=== PATIENT | female | born 1975 | race Caucasian/White ===

== ENCOUNTER → 2020-07-01 15:30 | Outpatient (CLI) | payer SELFPAY ==
--- NOTE | 2020-07-02 | EMB_PTH ---
PATIENT: DIONTE VELAZQUEZ LOC: [facility] U#:[id number] AGE/SX: 50/F ROOM: RE07/01/[address]: Dr. Lamberto Gross MD : 1975 BED: DIS: SPEC #: [id number] RECD: 07/02/20 09:52 STATUS: YOGESH EDGAR #: [id number] ALEXIA: 07/02/20 00:[address]: Lamberto Gross DEPT: SURGICAL PATHOLOGY RECD BY: Teodora Henderson Tissues: Endometrium, NOS Procedures: Surgery Specimen Level IV HEADER OPERATION: Endometrial biopsy PRE-OP DIAGNOSIS: N93.9 N92.0 TISSUE SUBMITTED: Endometrial biopsy MICROSCOPIC DIAGNOSIS Endometrial biopsy: Late proliferative to early secretory endometrium. SJ:yara 07/03/20 MICROSCOPIC DESCRIPTION Slides are reviewed. GROSS DESCRIPTION Received in fixative is one container labeled with the patient's name and designated endometrial biopsy. The specimen consists of multiple irregular and elongated fragments of light quezada soft tissue that in aggregate measure 2.5 x 2.2 x 0.2 cm. The specimen is totally submitted in one cassette. / AM:yara 07/02/20 TC:4 CPT: 79375
[2020-07-07 09:44] LABS: HPV Reflexed? NOT INDICATED
== END ==
PROVIDERS: Visit Provider Obstetrics & Gynecology
DX: N93.9 Abnormal uterine and vaginal bleeding, unspecified (principal); N92.0 Excessive and frequent menstruation with regular cycle; Z12.4 Encounter for screening for malignant neoplasm of cervix
CPT/HCPCS: 88175; 88305; G0145

== ENCOUNTER 2020-08-04 06:02 | Day surgery (SDC) | payer SELFPAY ==
[2020-07-30 14:59] LABS: Prothrombin Time (Protime)PT. 12.9 SECONDS (11.7-14.9)
[2020-07-30 15:00] LABS: Partial Thromboplast Time 26.6 Seconds (24.1-36.2)
[2020-07-30 15:16] LABS: Hematocrit 34.2 % (37-47); Hemoglobin 10.6 g/dL (12.0-15.0); Mean Corpuscular Hgb 25.4 pg (27.0-32.0); Platelet Count 269 K/mm3 (150-450); RBC Distribution Width CV 14.5 % (11.6-14.6); RBC Distribution Width SD 42.2 fl (35.1-43.9); Red Blood Count 4.17 M/mm3 (4.2-5.4); White Blood Count 7.3 K/mm3 (4.4-11.0)
[2020-07-30 15:21] LABS: Creatinine, Serum 0.98 mg/dL (0.55-1.02); EST Glomerular Filtration Rate 66 mL/min (>60); Est Glom Filt Rate - Afr Amer 80 mL/min (>60)
[2020-07-30 15:25] LABS: hCG Titer Quant., Serum < 1 mIU/mL (1-3)
--- NOTE | 2020-08-03 12:39 | HP.PCM_ITS ---
History and Physical Date of Admission: 08/04/20 Surgical History and Physical Jennifer Denson, a 45 year old female 0 0 0 0 0, presents for RAVH/BS on August 04, 2020 at 7:30. -- Extremely Heavy and Long Menses; Heavy Irregular Bleeding; Large Submucous Fibroid -- Jennifer presents with c/o heavy irregular menses intermittently for the past 4mos. Pt relates her LMP began 06/13/20 and lasted 12days with very heavy flow and lots of clots. Pt sts periods have been heavier and more clots noted, but for the past 3-4mos are lasting longer and cycling closer to 18-21days. 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 Has a 5 month H/O heavy bleeding and clotting with cycles. They have become heavy and irregular. Dysmenorrhea and heavy menses which began 5 months ago. Jennifer claims it started suddenly and has been present varies. It occurs with menses. It is located in the Uterus. Associated signs and symptoms are none. Additional comments are: recent EMBx normal; heavy and long menses; 4 cm submucous fibroid lower uterine segment. MEDICATIONS HISTORY: Current medications prescribed by our practice are: 1. Provera 10 mg tablet, One pill by mouth once a day for 10 days every other month ALLERGIES: No Known Drug Allergies Review of Systems: GENERAL - Denies fever, or chills SKIN - Denies skin changes EYES - Denies visual changes EARS - Denies difficulty hearing NOSE - Denies nasal congestion or bleeding MOUTH - Denies sore throat or difficulty swallowing NECK - Denies pain or swelling RESPIRATORY - Denies shortness of breath or wheezing CARDIOVASCULAR - Denies palpitations or chest pain GASTROINTESTINAL - Denies nausea, vomiting, diarrhea, constipation GENITOURINARY - Denies dysuria, frequency of urination, incontinence of urine MUSCULOSKELETAL - Denies joint or muscle pain NEUROLOGICAL - Denies localized numbness or weakness PSYCHIATRIC - Denies depression or anxiety ENDOCRINE - Denies heat or cold intolerance, weight loss or gain HEMATO-IMMUNOLOGIC - Denies excesive bleeding with cuts SOCIAL HISTORY: Alcohol Use - denies use Smoking - denies use FAMILY HISTORY: MENSTRUAL HISTORY: LMP Known?- DefiniteAmount/Duration - normal amount, Regularity - Irregular and heavy, Frequency - variable days, LMP - 07/12/20 PAST PREGNANCIES: Total Pregnancies - 0; Full Term Pregnancies - 0; Premature - 0; Abortions, Induced - 0; Abortions, Spontaneous - 0; Ectopics - 0; Multiple Births - 0; Living Children - 0 PHYSICAL EXAM BP- 154/84 Sitting, Right arm, regular cuff Weight- 180.48569 lbs Height- 67 inch BMI:28.25 CONSTITUTIONAL - NAD, well nourished, and well developed SKIN - No rash, lesions, or ulcers HEENT - Normocephalic, PERRLA, EOMI NECK - No nodes, no nuchal rigidity and thyroid normal size and texture LYMPH NODES - Palpation of lymph nodes in neck and groins within normal limits LUNGS - CTA x2 without wheezes, crackles or rales CARDIAC - Regular rate and rhythm without rubs, murmurs, or gallops BREAST - No dominant masses, no tenderness, no axillary adenopathy, no nipple discharge, no skin changes ABDOMEN - Without hepatosplenomegaly, distention, masses, rebound, or guarding; normal bowel sounds; no hernias EXTREMITIES - No edema or calf tenderness NEUROLOGICAL - Cranial nerves II-XII grossly intact PSYCHIATRIC - A and O to time, place, person, mood and affect External Genitial Vagina - non-tender without lesions Urethra/Urethral Meatus - non-tender Bladder - non-tender Vagina - vaginal graham are pink and moist without loss of rugae and no evidence of atropy and blood in vagina Cervix - without cervical motion tenderness and has normal size and features without evident lesions and cervix high in vagina and posterior Uterus - enlarged uterus 8 wks, wt 125-150 g Adnexa - clear without massess or tenderness ASSESSMENT/PLAN: 1. Excessive And Frequent Menstruation With Regular Cycle and Submucous Leiomyoma Uterus Discussed options for treatment including expectant management versus proceeding with RAVH/BS. Desires proceeding with surgery. Discussed RBAs and all questions answered.
[2020-08-04] VITALS (11 sets, daily range): BP systolic 99–150; BP diastolic 56–81; PULSE 53–72; RESP 16–18; TEMP 36.3–37.1; O2SAT 93–100; BMI 28.8
[2020-08-04 06:37] LABS: Internal QC Validated? YES +Cl - CLEAR BKGD; Pregnancy, Urine Negative Negative
[2020-08-04] MEDS: Lactated Ringers 1,000 ML 100 ML IV ×2 (06:48→12:04)
--- NOTE | 2020-08-04 07:45 | HYST_PTH ---
PATIENT: DIONTE VELAZQUEZ LOC[place] [facility] [place] U[place][id number] AGE/SX: 45/F ROOM: RE08/04/[address]: Dr. Lamberto Gross MD : 1975 BED: DIS: 08/05/2020 SPEC #: [id number] RECD: 08/04/20 07:45 STATUS: YOGESH HERNÁNDEZ #: [id number] ALEXIA: 08/04/20 07:[address]: Lamberto Gross DEPT: SURGICAL PATHOLOGY RECD BY: Teodora Henderson ENTERED: 08/04/20 12:32 SP TYPE: HYSTERECT OTHR DR: Dr. Kevin Pizarro MD Tissues: Uterus, NOS Procedures: Surgery Specimen Level V HEADER OPERATION: Robotic assisted vaginal hysterectomy, bilateral salpingectomy PRE-OP DIAGNOSIS: Excessive and frequent menstruation TISSUE SUBMITTED: Uterus, cervix, bilateral fallopian tubes MICROSCOPIC DIAGNOSIS Uterus, hysterectomy: Cervix - nabothian cysts, squamous metaplasia and mild chronic inflammation. Endometrium - transition endometrium. Myometrium - leiomyomas. Right fallopian tube - no pathologic change. Left fallopian tube - no pathologic change. AM:yara 08/05/2020 MICROSCOPIC DESCRIPTION Slides are reviewed. GROSS DESCRIPTION Received in fixative is one container labeled with the patient's name and designated uterus, cervix, bilateral fallopian tubes. The specimen consists of a hysterectomy specimen consisting of uterus in multiple pieces, cervix and bilateral fallopian tubes. One fallopian tube is attached to one of the pieces of uterus and the second fallopian tube is detached. The uterus with cervix weighs in aggregate 269 gm. The detached cervix measures 3.5 x 3 x 2 cm. The ectocervical mucosa is unremarkable. The external os is slit-like in contour. The endocervical canal measures 3.5 cm in length. The endocervical mucosa is unremarkable. Sections of the cervix reveal two cysts filled with mucoid material. The uterus in multiple pieces measure in aggregate 14 x 14 x 5 cm. The largest piece measures 10 x 7 x 5 cm. The largest piece of uterus also shows endometrial cavity with endometrium thin without any mass lesion and measuring 0.1 cm in thickness. This piece of uterus also shows a nodular mass measuring 4.5 cm in greatest dimension. The uninvolved uterine wall measures 3 cm in thickness. Sections also reveal additional intramural nodular masses. The largest mass as previously noted is submucosal in location. Sections of these masses reveal quezada whorled cut surfaces without areas of hemorrhage, necrosis or cystic degeneration. The fallopian tubes could not be oriented as right or left due to fragmented nature of the specimen and measures 7 cm in length and 0.7 cm in diameter and 6.5 cm in length and 0.5 cm in diameter. Sections of fallopian tubes do not reveal any mass lesion. [employer] sections are submitted in 11 cassettes as follows: 1 & 2 - cervix, 3-5 - uterine wall including endometrium (4 & 5 also contain submucosal nodular mass), 6 & 7 - largest nodular mass, 8 - second largest nodular mass, 9??smaller nodular masses, 10 - one fallopian tube attached to one of the pieces of uterus, 11 - detached fallopian tube. / TONJA:yara 08/04/2020 TC:1 CPT: 37583
[2020-08-04] MEDS: Cefotetan 2 GM in 0.9% NS 100 ML IV (08:10)
[2020-08-04] MEDS: Lubricating Jelly 60 GM Tube 30 GM TOPICAL (08:30)
[2020-08-04] MEDS: Ropivacaine 0.5% 30 ML Vial (08:37)
--- NOTE | 2020-08-04 10:56 | OP.PCM_ITS ---
Report of Operation Date of Procedure: 08/04/20 Pre-Operative Diagnosis: Menorrhagia and Submucous Fibroids Post-Operative Diagnosis: Menorrhagia and Submucous Fibroids Surgery/Procedure Performed:: Robotic Assisted Vaginal Hysterectomy and Bilateral Salpingectomy Description of Surgical Findings:: 15 cm uterus with normal-appearing fallopian tubes and ovaries. Removed in pieces with submucous fibroid noted in the specimen. histotechnologist supervisor: Bakari Woods Type of Anesthesia:: General - Endotracheal Anesthesiologist: Vitaliy Taveras Specimen's removed: Uterus and bilateral fallopian tubes Drains: Scott to straight drain Estimated Blood Loss (mL): Minimal Fluids Replaced: Crystalloid Description of Procedure: Surgeon: Lamberto Gross MD, FACOG Indication: This is a 45 year old patient who has been having problems with extremely heavy menses with a large submucous fibroid noted on ultrasound. Conservative measures have not been helpful. The patient has been counseled regarding the risks, benefits and alternatives of this procedure including the possibility of bleeding, infection, and injury to surrounding structures such as bowel bladder and all questions were answered. She understands that if BSO is needed that she will need to be on HRT for an indefinite period of time. Procedure: Pt taken to the operating room where, after induction of general anesthesia, the patient was prepped and draped in the usual sterile fashion and placed on a non-slip Huggy-u-vac device. Trendelenburg test was satisfactory. Bladder was drained of urine with a Scott catheter which was left in place. Anterior cervix grasped and cervix was dilated to about 3-4 mm. Uterus sounded to 10 cms. 0-Vicryl suture was placed at the 3:00 and 9:00 position of the cervix. A small Advincula Hat Finisher Uterine Manipulator was then placed in the uterus and attention was turned to the laparoscopic portion of the procedure. Ropivocaine 0.5% was injected approximately 3 cm superior to the umbilicus and an 8 mm robotic camera port was introduced directly with intraperitoneal placement confirmed with CO2 insufflation. 8 mm robotic side ports were introduced under direct visualization approximately 10 cm lateral and 2 cm inferior to the umbilical port. A 5 mm left upper quadrant port was introduced and airseal insufflation with CO2 was started. The above findings were noted. Robot was docked without difficulty and attention turned to the robotic portion of the procedure. Approximately 26 cc of Ropivicaine was used. Bilateral mesosalpinx were ligated with 45 sidhu bipolar coagulation to the level of the round ligament. The posterior aspect of the cervix was identified and then opened for about 1 cm using 25 watt monopolar cautery. Bladder flap was opened and divided to the level of the round ligaments using monopolar cau jennifer. Progressive bites were then ligated on each side of the cervix with 35 sidhu bipolar cautery to the uterine arteries. The anterior vaginal mucosa was entered and cervix circumscribed with monopolar cautery. Uterus and attached tubes were removed through the vagina. It was necessary to remove the uterus in pieces due to its large size and inability to go through the vaginal cuff opening intact. Vaginal cuff was closed robotically first with 0-Vicryl Bettie stitches placed at each angle followed by closure of the mid-cuff with 0- Monocryl V-lock suture in two layers. Pelvis was copiously irrigated with saline and the right and left ureter were noted to peristalse. Robot was undocked and trocars were removed with as much gas as possible. Incisions were closed with 4-0 Monocryl subcuticular sutures and incisions covered with steri-strips. The patient tolerated the procedure well and was taken to the recovery room in satisfactory condition. Sponge, instruments and needle counts were all correct. There were no apparent complications of the surgery. Cefotetan hand 2 gms IV was given prior to the procedure. Estimated Blood Loss: Minimal Specimen to Pathology: Uterus and bilateral fallopian tubes Grafts/Implants Used: None - Complications None - Admit VTE Documentation VTE Present on Admission: Yes VTE Mechan Device Prophylaxis: SCD's VTE Pharm Prophylaxis ordered?: Yes
--- NOTE | 2020-08-04 11:04 | PCM.DC.VHY ---
Discharge Diet: No Restrictions Discharge Activity: Return to Normal Activity, May Not Drive - while taking narcotic pain medications., May Shower, May Take a Tub Bath May resume sexual activity in: 6-8 weeks Call your doctor if your incision/area has: Continuous Slow Oozing, Sudden Increased Bleeding, Increased Pain/ Swelling, Increased Redness, Foul Smelling Discharge Call your doctor if you observe: Fever of 101 or Higher, Inability to urinate, Inability to have a bowel movement, Using more than one pad per hour Allergies/Adverse Reactions: Allergies No Known Allergies Allergy (Verified 08/04/20 06:19) Medications to take at Discharge Docusate Sodium [Colace] 100 mg PO BID PRN PRN #60 cap 08/04/20 Oxycodone [Oxyir] 5 mg PO Q6H PRN PRN 7 Days #10 tablet 08/04/20 The following prescriptions were given: Docusate Sodium [Colace] 100 mg PO BID PRN PRN #60 cap PRN Reason: Constipation Transmission Status: [facility] to [facility] Oxycodone [Oxyir] 5 mg PO Q6H PRN PRN 7 Days #10 tablet PRN Reason: Pain Score 6-10 Transmission Status: [facility] to [facility] Primary Care Physician: Kevin Pizarro MD [Primary Care Provider] - Test Results: Test results from this visit will be discussed in further detail at your follow-up appointment, if applicable. Please Follow Up With: Lamberto Gross MD When: 2 to 3 weeks
--- NOTE | 2020-08-04 12:26 | SUR.PHASEI ---
per Dr. Pruitt pt is ok for floor with current vitals
--- NOTE | 2020-08-04 12:48 | PCS.PANDOC ---
PANDEMIC DOCUMENTATION INITIATED: Date: 07/07/2020 Time:
[2020-08-04] MEDS: Acetaminophen 500 MG Tablet 1000 MG PO ×2 (15:01→20:09)
[2020-08-04] MEDS: Lactated Ringers 1,000 ML 150 ML IV (16:52)
[2020-08-04] MEDS: 0.9% Saline Lock 10 ML Syringe IV (16:52)
[2020-08-04] MEDS: Ketorolac 30 MG/ML Syringe IV ×2 (16:52→22:54)
[2020-08-04] MEDS: Enoxaparin 30 MG/0.3 ML Syringe SC (16:52)
[2020-08-04] MEDS: Docusate Sodium 100 MG Capsule PO (22:55)
[2020-08-05] MEDS: Lactated Ringers 1,000 ML 150 ML IV ×2 (02:02→05:48)
[2020-08-05] MEDS: Acetaminophen 500 MG Tablet 1000 MG PO ×3 (02:02→15:05)
[2020-08-05 02:24] VITALS: BP 119/64; PULSE 50; RESP 18; TEMP 36.9; O2SAT 98
[2020-08-05] MEDS: 0.9% Saline Lock 10 ML Syringe IV ×2 (05:48→12:54)
[2020-08-05] MEDS: Ketorolac 30 MG/ML Syringe IV ×2 (05:48→12:54)
--- NOTE | 2020-08-05 06:50 | PN.OBGYN_ITS ---
Subjective: Patient without complaints. Tolerating diet well. Minimal vaginal bleeding. Objective: Wounds are clean, dry, intact. Good urine output. Hemoglobin and creatinine pending. - Physical Exam Vitals/I&O's: Vital Signs Temp Pulse Resp BP Pulse Ox 98.4 F 50 L 18 119/64 98 08/05/20 02:24 08/05/20 02:24 08/05/20 02:24 08/05/20 02:24 08/05/20 02:24 Oxygen Delivery Method Room Air Weight: 178 lb 3.2 oz Body Mass Index (BMI) 28.8 Intake and Output for Last 24 Hours 08/03/20 08/04/20 08/05/20 23:59 23:59 23:59 Intake Total 3005.00 / 3005.00 565 / 565 Output Total 2785 / 2785 Balance 220.00 / 220.00 565 / 565 Current Medications Acetaminophen (Acetaminophen 500 Mg Tablet) 1,000 mg PO Q6H [facility] Last Admin: 08/05/20 02:02 Dose: 1,000 mg Documented by: Docusate Sodium (Docusate Sodium 100 Mg Capsule) 100 mg PO BID [facility] Last Admin: 08/04/20 22:55 Dose: 100 mg Documented by: Sodium Chloride () 250 mls @ 15 mls/hr IV .[id number] PRN PRN Reason: Saline Flush Sodium Chloride () 250 mls @ 15 mls/hr IV .[id number] PRN PRN Reason: Additional IVPB Infusion Lactated Ringer's () 1,000 mls @ 150 mls/hr IV .Q6H40M [facility] Stop: 08/05/20 14:18 Last Admin: 08/05/20 05:48 Dose: 150 mls/hr Documented by: Ketorolac Tromethamine (Ketorolac 30 Mg/Ml Syringe) 30 mg IV Q6H [facility] Stop: 08/05/20 23:01 Last Admin: 08/05/20 05:48 Dose: 30 mg Documented by: Magnesium Chloride (Magnesium Chloride 64 Mg Delay Rel.Tablet) 128 mg PO DAILY PRN PRN PRN Reason: Constipation Nutritional Formula (Lactose Free) (Ensure Enlive 120 Ml Liquid) 120 ml PO TIDCM [facility] Ondansetron HCl (Ondansetron Odt 4 Mg Tablet) 4 mg PO Q6H PRN PRN PRN Reason: NAUSEA Oxycodone HCl (Oxycodone 5 Mg Tablet) 5 mg PO Q6H PRN PRN PRN Reason: Pain Score 4-10 Sodium Chloride (0.9% Saline Lock 10 Ml Syringe) 10 - 40 ml IV UD PRN PRN Reason: SALINE FLUSH Last Admin: 08/05/20 05:48 Dose: 10 ml Documented by: Medical Necessity - Tobacco Use Smoking Status: Never smoker Tobacco Use: Non-smoker Assessment/Plan Doing well postoperative day #1 status post robotic assisted vaginal hysterectomy and bilateral salpingectomy. Will discharge to home when able to void on own later today. Home-going instructions given.
[2020-08-05 07:10] VITALS: O2SAT 97
[2020-08-05 07:17] LABS: Hematocrit 31.1 % (37-47); Hemoglobin 9.6 g/dL (12.0-15.0); Mean Corp Hgb Conc 30.9 g/dL (32-36); Mean Corpuscular Hgb 25.2 pg (27.0-32.0); Mean Corpuscular Volume 81.6 fL (81-99); Mean Platelet Vol. 10.2 fl (6.2-12.0); Platelet Count 231 K/mm3 (150-450); RBC Distribution Width CV 14.3 % (11.6-14.6); RBC Distribution Width SD 42.3 fl (35.1-43.9); Red Blood Count 3.81 M/mm3 (4.2-5.4); White Blood Count 11.4 K/mm3 (4.4-11.0)
[2020-08-05 07:39] LABS: EST Glomerular Filtration Rate 73 mL/min (>60); Est Glom Filt Rate - Afr Amer 88 mL/min (>60); Estimated Creatinine Clearance 75.45 ml/min
[2020-08-05 08:27] VITALS: BP 108/65; PULSE 52; RESP 18; TEMP 36.8; O2SAT 98
--- NOTE | 2020-08-05 11:05 | NURSING ---
Patient expressing desire to be discharged if possible. Patient was instructed by primary RN (Lelo) that we will need to make sure that she can adequately empty bladder prior to discharge. Patient voided 150mls of clear yellow urine into a specimen hat after ambulating. A post void bladder scan was performed by this nurse which revealed > 400mls of post void residual. Informed patient that we would like to see her to be able to empty her bladder a little more completely. Patient stated that she feels as if she is not completely emptying. Instructed patient to continue with ambulation as available and to use the call light to notify nursing staff after she voids again so another post void residual bladder scan can be performed. Lelo RN aware of the above
[2020-08-05] MEDS: Docusate Sodium 100 MG Capsule PO (12:53)
[2020-08-05 15:12] VITALS: BP 138/83; PULSE 58; RESP 18; TEMP 37.2; O2SAT 98
== END 2020-08-05 15:30 | disposition home or self-care (01) ==
LOC: SDC 06:09 → AC 06:09 → MS3 12:01
PROVIDERS: Anesthesiology; PCP Family Medicine; Referring Provider Obstetrics & Gynecology; Visit Provider Obstetrics & Gynecology
PROC: 0UT90ZZ Resection of Uterus, Open Approach (ICD-10-PCS; CPT 58552; principal; 2020-08-04 07:25)
DX: N92.0 Excessive and frequent menstruation with regular cycle (principal); D25.9 Leiomyoma of uterus, unspecified; Z79.1 Long term (current) use of non-steroidal anti-inflammatories (NSAID); Z79.899 Other long term (current) drug therapy; N88.8 Other specified noninflammatory disorders of cervix uteri; D26.1 Other benign neoplasm of corpus uteri
CPT/HCPCS: 58552; 36415; 81025; 82565; 84702; 85027; 85610; 85730; 86850; 86900; 86901; 87426; 88307; 99251; C9803; J7120; A4216; G0463; J2405

== ENCOUNTER → 2025-01-30 | Outpatient (CLI) | payer SELFPAY ==
[2025-01-30 16:31] LABS: AST(SGOT) 20 U/L (<=31); Alanine Aminotransfer ALT/SGPT 17 U/L (<=34); Albumin, Serum 4.4 g/dL (3.5-5.0); Alkaline Phosphatase 82 U/L (35-104); Anion Gap 10 (5-15); BUN 18 mg/dL (4-19); BUN/Creat Ratio 18.7 RATIO (10-20); Calcium,Total 10.3 mg/dL (7.6-11.0); Carbon Dioxide 23.7 mmol/L (21.0-32.0); Chloride 105 mmol/L (98-108); Cholesterol 179 mg/dL (<=200); Globulin 3.7 g/dL (2.2-4.2); Glucose 120 mg/dL (70-99); Low Density Lipoprotein Calc. 100 mg/dL; Potassium 4.9 mmol/L (3.3-5.1); Triglycerides 171 mg/dL; Very Low Density Lipoprotein 34 mg/dL (5-40); cholesterol:hdl ratio screen 4.03
--- OUTSIDE RECORDS SUMMARY | 2025-01-30 22:45 | XMS RPT_ITS | CCD ---
Author Organization [facility] Care Team Providers Care Security Alarm Installer Name Role Phone Kevin Pizarro MD Unavailable Kevin Pizarro MD Unavailable Kye POTTERN, Margaret Orozco Unavailable Unavailab tigre Blair ANIMAL CARE ATTENDANT, Amanda Gemma Unavailable Unavaila ble Unavailable Unavailable Dr. Tacos Callaway Unavailable Loco FIGUEROA, Dora Unavailable Unavailable Carmina Stewart Attending Unavailable Kevin Pizarro Referring Unavailable Kevin Pizarro Primary Care Unavailable Juarez CABA, Dr. Brown Primary Care Provider Dr. Kevin Pizarro MD Referring Provider [phone] Carmina Romeo Attending Provider Medications Current Medications Medication Drug Class(es) Dates Sig (Normalized) Sig (Original) aspirin 81 mg delayed release oral tablet (1 source) Platelet Aggregation Inhibitor, Nonsteroidal Anti-inflammatory Drug Start: 01-30-2025 take 1 tablet by mouth once daily Aspirin (Adult Aspirin Regimen) 81 mg tablet,delayed release (DR/EC) Active 81 mg PO DAILY 360 0 January 30, 2025 12:00am rosuvastatin calcium 40 mg oral tablet (1 source) HMG-CoA Reductase Inhibitor Start: 01-30-2025 take 1 tablet by mouth once daily Rosuvastatin 40 mg tablet Active 40 mg PO daily 30 2 January 30, 2025 12:00am Completed/Discontinued Medications Medication Drug Class(es) Dates Sig (Normalized) Sig (Original) amoxicillin 500 mg oral tablet (3 sources) Penicillin-class Antibacterial Start: 07-12-2018 End: 07-26-2018 take 1 tablet by mouth three times daily Amoxicillin 500 MG Oral Tablet ; 1 (one) Tablet tid for 14 days Quantity: 42 {Tablet} Refills: 0 Ordered: 12-Jul-2018 MD Kevin Pizarro Start: 12-Jul-2018 End: 26-Jul-2018 Status: Inactive docusate sodium 100 mg oral capsule (1 source) Start: 08-04-2020 End: 01-25-2025 take 1 capsule by mouth twice daily as needed for constipation Docusate Sodium 100 MG capsule Discontinued 100 mg PO TWICE DAILY NEEDED as needed for Constipation 60 1 August 04, 2020 1:00am January 25, 2025 1:56pm oxyCODONE hydrochloride 5 mg oral tablet (1 source) Opioid Agonist Start: 08-04-2020 End: 08-11-2020 take 1 tablet by mouth every six hours as needed for pain Oxycodone 5 MG tablet Discontinued 5 mg PO EVERY 6 HOURS NEEDED as needed for Pain Score 6-10 10 7 0 August 04, 2020 August 10, 2020 1:00am August 11, 2020 1:02am Other acute postprocedural pain sulfamethoxazole 800 mg / trimethoprim 160 mg oral tablet (3 sources) Dihydrofolate Reductase Inhibitor Antibacterial, Sulfonamide Antimicrobial Start: 11-19-2013 End: 12-03-2013 take 1 tablet by mouth twice daily BACTRIM DS, 800-160MG (Oral Tablet) ; 1 Tab two times daily for 14 days Quantity: 28 {Tablet} Refills: 0 Ordered: 27-Mar-2014 MD Kevin Pizarro Start: 19-Nov-2013 End: 03-Dec-2013 Status: Inactive Problems Active Problems Problem Classification Problem Date Documented Da te Episodic/Chronic Acute bronchitis (6 sources) Acute bronchitis; Translations: [Acute bronchitis, unspecified] 11-19-2013 Episodic Blindness and vision defects (4 sources) Eye / vision finding; Translations: [Unspecified visual disturbance] 01-01-2025 Episodic Disorders of teeth and jaw (6 sources) Dental abscess; Translations: [Periapical abscess without sinus] 07-12-2018 Episodic Occlusion or stenosis of precerebral arteries (3 sources) Carotid artery stenosis; Translations: [Occlusion and stenosis of unspecified carotid artery] 01-07-2025 Chronic Other connective tissue disease (6 sources) Pain in left lower limb; Translations: [Pain in left leg] 07-12-2018 Episodic Varicose veins of lower extremity (6 sources) Varicose veins of lower extremities with other complications 07-12-2018 Episodic Past or Other Problems Problem Classification Problem Date Documented Da te Episodic/Chronic Unclassified (3 sources) Cheek pain - Started with pain, pressure and swelling of left cheek for 5 days and getting worse. Has had a fever off and on. reviewed by [facility] 07-12-2018 Unclassified (3 sources) Leg pain - The leg pain began gradually over time and has been occurring for 3 months. The symptoms have been occurring in a persistent pattern. The symptoms are described as a dull ache and are moderate in severity. The symptoms occur at rest and on exertion. There is involvement of the left lower extremity (rebollar). There are no precipitating factors. Aggravating factors include exertion, lying flat, sitting, walking, running and climbing stairs. There are no relieving factors. The symptoms have been associated with calf swelling, while the symptoms have not been associated with fever. There is a medical history of phlebitis. Note for Leg pain: reviewed by [facility] 03-27-2014 Unclassified (3 sources) Cold Symptoms - Symptoms include nasal congestion, purulent discharge (blowing out green nasal drainage.), productive cough (and will expectorate greensish sputum.) and wheezing (but not SOB. Pulse ox 97%.), but do not include ear pain, sore throat, fever or headache. The onset was gradual 2 week(s) ago. The patient describes this as unchanged. Current treatment includes non-prescription cold medication (Emergent -c- OTC). Risk factors do not include smoking. The patient has been exposed to an individual with similar symptoms. Note for Upper respiratory infection: reviewed by [facility] 11-19-2013 Unclassified (3 sources) Right leg pain - Pt here because about a week ago her right leg from knee on down started with a burning sensation. Then area right below knee turned black and blue and leg has been painful and swelling since then. Only thing that helps pain is to rest and keep elevated. 06-26-2010 Unclassified (2 sources) Follow up consultation - The patient is here to follow-up after an Ophthalmology consult ([facility]) on : (01/01/2025). Current symptoms include visual issues. Note for Consultation follow-up: Dr Dxion was concerned about possible carotid artery disease. 01-01-2025 Unclassified (2 sources) [ADDITIONAL REASON] Transition into care - The patient is transitioning into care from another physician (eye doctor). 01-01-2025 Vital Signs Date Time Vital Sign Value Performing Clinician Facility 01-30-2025 13:16-0400 Body height 170.[address] Kevin Pizarro MD Work Phone: [phone] [address] 01-30-2025 13:16-0400 Body mass index (BMI) [Ratio] 28 kg/m2 Dr. Kevin Pizarro MD Work Phone: [phone] [place] [address] 01-30-2025 13:16-0400 Body temperature 98.6 [degF] Dr. Kevin Pizarro MD Work Phone: [phone] [place] [address] 01-30-2025 13:16-0400 Body weight 81.[address] Kevin Pizarro MD Work Phone: 4([phone])026-850920 [place] [address] 01-30-2025 13:16-0400 Diastolic blood pressure 92 mm[Hg] Dr. Kevin Pizarro MD Work Phone: [phone])[phone] [place] [address] 01-30-2025 13:16-0400 Heart rate 68 /min Dr. Kevin Pizarro MD Work Phone: [phone])[phone] [place] [address] 01-30-2025 13:16-0400 Respiratory rate 16 /min Dr. Kevin Pizarro MD Work Phone: [phone])[phone] [place] [address] 01-30-2025 13:16-0400 SaO2% (BldA) [Mass fraction] 97 % Dr. Kevin Pizarro MD Work Phone: [phone] [place] [address] 01-30-2025 13:16-0400 Systolic blood pressure 145 mm[Hg] Dr. Kevin Pizarro MD Work Phone: 4([phone])[phone] [place] [address] 01-01-2025 09:51-0400 Body height 171.45 cm Dora Adan LPN [facility], [facility].; [facility], [facility] 01-01-2025 09:51-0400 Body mass index (BMI) [Ratio] 27.93 kg/m2 Dora Adan LPN [facility], [facility].; [facility], [facility] 01-01-2025 09:51-0400 Body surface area Derived from formula 1.95 m2 Dora Adan LPN [facility], [facility].; [facility], [employer] 01-01-2025 09:51-0400 Body weight 82.1 kg Dora Loco FIGUEROA [facility], [employer] [facility], [employer]. 01-01-2025 09:51-0400 Diastolic blood pressure 89 mm[Hg] Dora Adan LPN [facility], [employer], [employer]. Comment on above: Patient Position: Sitting; Cuff Location : Left Arm; Cuff Size: Standard 01-01-2025 09:51-0400 Heart rate 71 /min Dora Adan LPN [facility], [employer] Comment on above: Pattern: Regular 01-01-2025 09:51-0400 Systolic blood pressure 128 mm[Hg] Dora Adan LPN [facility], [employer] Comment on above: Patient Position: Sitting; Cuff Location : Left Arm; Cuff Size: Standard 07-12-2018 13:03-0500 Body height 171.45 cm Margaret Oorzco Kye ANIMAL CARE ATTENDANT [facility], [employer] 07-12-2018 13:03-0500 Body mass index (BMI) [Ratio] 27.78 kg/m2 [facility] [place] [facility], [employer].; [employer] 07-12-2018 13:03-0500 Body surface area Derived from formula 1.94 m2 Ana Stuckey ANIMAL CARE ATTENDANT [facility], [employer] 07-12-2018 13:03-0500 Body temperature 101.1 [degF] [facility] [place] [facility], [employer], [employer]. Comment on above: Method: Tympanic 07-12-2018 13:03-0500 Body weight 81.65 kg Ana Kye [facility], [employer] 07-12-2018 13:03-0500 Diastolic blood pressure 91 mm[Hg] AnaPam Cuadraey ANIMAL CARE ATTENDANT [facility], [employer], [employer]. Comment on above: Patient Position: Sitting; Cuff Location : Left Arm; Cuff Size: Large 07-12-2018 13:03-0500 Heart rate 92 /min Margaret Fishman ANIMAL CARE ATTENDANT [facility], [employer], [employer]. Comment on above: Pattern: Regular 07-12-2018 13:03-0500 Systolic blood pressure 148 mm[Hg] Margaret Fishman [facility], [employer], [employer]. Comment on above: Patient Position: Sitting; Cuff Location : Left Arm; Cuff Size: Large 03-27-2014 10:040 Body height 171.45 cm Amanda Blair LPN [facility], [employer], [employer]. 03-27-2014 10:0400 Body mass index (BMI) [Ratio] 27.78 kg/m2 [facility] [employer] 03-27-2014 10:190400 Body surface area Derived from formula 1.94 m2 Amanda Blair LPN [place] [facility], [employer], [employer]. 03-27-2014 10:190400 Body temperature 98.3 [degF] Amanda Blair [facility] [place] [facility], [employer], [employer]. Comment on above: Method: Tympanic 03-27-2014 10:040 Body weight 81.65 kg Amanda Blair LPN [facility], [employer] 03-27-2014 10:190400 Diastolic blood pressure 88 mm[Hg] Amanda Blair LPN [place] [facility], [employer], [employer]. Comment on above: Patient Position: Sitting; Cuff Location : Right Arm; Cuff Size: Standard 03-27-2014 10:190400 Heart rate 64 /min Amanda Blair LPN [place] [facility], [employer]. Comment on above: Pattern: Regular 03-27-2014 10:19-0400 Systolic blood pressure 147 mm[Hg] Amanda Blair LPN [employer] [facility], [employer]. Comment on above: Patient Position: Sitting; Cuff Location : Right Arm; Cuff Size: Standard 11-19-2013 13:30-0400 Body temperature 98.7 [degF] Kevin Pizarro MD Work Phone: [employer]. 11-19-2013 13:30-0400 Body weight 80.74 kg Kevin Pizarro MD Work Phone: [employer]. 11-19-2013 13:30-0400 Diastolic blood pressure 79 mm[Hg] Kevin Pizarro MD Work Phone: [employer]. Comment on above: Patient Position: Sitting; Cuff Location : Left Arm; Cuff Size: Standard 11-19-2013 13:30-0400 Heart rate 74 /min Kevin Pizarro MD Work Phone: [employer]. Comment on above: Pattern: Regular 11-19-2013 13:30-0400 Systolic blood pressure 118 mm[Hg] Kevin Pizarro MD Work Phone: [employer]. Comment on above: Patient Position: Sitting; Cuff Location : Left Arm; Cuff Size: Standard 06-26-2010 11:02-0500 Body weight 77.11 kg Kevin Pizarro MD Work Phone: [employer]. 06-26-2010 11:02-0500 Diastolic blood pressure 81 mm[Hg] Kevin Pizarro MD Work Phone: [employer]. Comment on above: Patient Position: Sitting; Cuff Location : Left Arm; Cuff Size: Standard 06-26-2010 11:02-0500 Heart rate 74 /min Kevin Pizarro MD Work Phone: [employer]. Comment on above: Pattern: Regular 06-26-2010 11:02-0500 Systolic blood pressure 131 mm[Hg] Kevin Pizarro MD Work Phone: [employer]. Comment on above: Patient Position: Sitting; Cuff Location : Left Arm; Cuff Size: Standard Encounters Encounter Date Encounter Type Care Provider Facility Start: 01-30-2025 End: 01-30-2025 ambulatory Carmina Stewart Facility:[facility] Start: 01-30-2025 End: 01-30-2025 Patient encounter procedure Carmina Stewartvladimir MURPHY -[facility] Work Phone: Start: 01-07-2025 End: 01-07-2025 Orders Kevin Pizarro MD Work Phone: [employer]. Start: 01-01-2025 End: 01-01-2025 Office outpatient visit 15 minutes Kevin Pizarro MD Work Phone: [employer] Start: 07-12-2018 End: 07-12-2018 Office outpatient visit 15 minutes Kevin Pizarro MD Work Phone: [employer] Start: 03-27-2014 End: 03-27-2014 Office outpatient visit 15 minutes Kevin Pizarro MD Work Phone: [employer] Start: 11-19-2013 End: 11-19-2013 Patient encounter procedure Kevin Pizarro MD Work Phone: [employer] Start: 06-26-2010 End: 06-26-2010 Patient encounter procedure Kevin Pizarro MD Work Phone: [employer] Procedures Date Procedure Procedure Detail Performing Clinician Start: 01-01-2025 End: 01-07-2025 Duplex scan extracranial art compl bi study Kevin Pizarro MD Work Phone: Plan of Treatment Date Care Activity Detail Author Start: 01-01-2025 Patient encounter procedure Medical; ACUTE VISIT - CHECK EYE VESSELS PER DR. SHE DIXON ([facility]) [employer] Start: 01-Jan-2025 10:10-04:00 MD Kevin Pizarro Appointment Request [employer] Start: 01-01-2025 End: 01-01-2025 Duplex scan extracranial art compl bi study Carotid Doppler, Bilateral (69540) Date: 01-Jan-2025 [employer] Comprehensive metabo lic 2000 panel - Serum or Plasma [facility] CTA Head vessels and Neck vessels W contrast IV [facility] Lipid 1996 panel - S chai or Plasma [facility] Payers Date Payer Category Payer Self-pay Self-pay 0 Unknown [id number] Social History Date Type Detail Facility Caffeine Use Caffeine Use [facility]; [facility] Start: 1977 Female [facility] Tobacco smoking consumption unknown [facility]; [facility] Work Phone: Start: 01-30-2025 Tobacco smoking status NHIS Never smoked tobacco (finding) [facility] Start: 07-28-2020 Tobacco Use Tobacco Use [facility] Evaluation note Note Date & Type Note Facility Evaluation note No assessment information availa ble [facility] Work Phone: Reason for referral (narrative) Note Date & Type Note Facility Reason for referral (narrative) No reason for referral information available [place] [facility] Work Phone: Summary Purpose Family History Relationship Condition Age at Onset Recorded Date/T elvis mother Malignant neoplasm Unknown Diabetes mellitus Unknown sister Hypertension Unknown Advance Directives No Advanced Directives Records Found Chief Complaint and Reason for Visit Chief Complaint Admit Date Carotid Artery Stenosis January 30, 2025 1 2:56pm Additional Source Comments INFORMATION SOURCE (unrecogn ized section and content) DATE CREATED AUTHOR 01/28/2025 [facility] Care Teams (unrecognized sec tion and content) Team Status: Active Member Role/Relationship Status Dates Dr. Kevin Pizarro MD Primary Care Provider Active Team Status: Inactive Member Role/Relationship Status Dates Dr. Kevin Pizarro MD Primary Care Provider Active Start: January 30, 2025 End: January 30, 2025 Dr. Kevin Pizarro MD Referring Provider Active S tart: January 30, 2025 End: January 30, 2025 KATHERINE Gong Attending Provider Active Star t: January 30, 2025 End: January 30, 2025 Goals (unrecognized section and content) Goals may be documented in a n alternate section FOR RECORDS PERTAINING TO PATIENTS WHO ARE OR HAVE BEEN ENROLLED IN A CHEMICAL DEPENDENCY/SUBSTANCEABUSE PROGRAM, SOME INFORMATION MAY BE OMITTED. This clinical summary was aggregated from multiple sources. Caution should be exercised in using it in the provision of clinical care. This summary normalizes information from multiple sources, and as a consequence, information in this document may materially change the coding, format and clinical context of patient data. In addition, data may be omitted in some cases. CLINICAL DECISIONS SHOULD BE BASED ON THE PRIMARY CLINICAL RECORDS. [facility] [employer] [facility]. provides no warranty or guarantee of the accuracy or completeness of information in this document.
--- OUTSIDE RECORDS SUMMARY | 2025-01-30 22:45 | XMS RPT_ITS | CCD ---
Author Organization [facility] Care Team Providers Care Target Protection Specialist Name Role Phone Kevin Pizarro MD Unavailable Kevin Pizarro MD Unavailable Kye POTTERN, Margaret Orozco Unavailable Unavailab tigre Blair HAND CULTIVATOR, Amanda Gemma Unavailable Unavaila ble Unavailable Unavailable Dr. Tacos Callaway Unavailable Loco FIGUEROA, Dora Unavailable Unavailable Carmina Stewart Attending Unavailable Kevin Pizarro Referring Unavailable Kevin Pizarro Primary Care Unavailable Juarez CABA, Dr. Brown Primary Care Provider Dr. Kevin Pizarro MD Referring Provider [phone] Carmina Romeo Attending Provider [phone] Medications Current Medications Medication Drug Class(es) Dates [...] a fever off and on. reviewed by [facility] 07-12-2018 Unclassified (3 sources) Leg pain - [...] phlebitis. Note for Leg pain: reviewed by [facility] 03-27-2014 Unclassified (3 sources) Cold Symptoms - [...] Note for Upper respiratory infection: reviewed by [facility] 11-19-2013 Unclassified (3 sources) Right leg pain [...] follow-up after an Ophthalmology consult ([facility]) on : (01/01/2025). Current symptoms include visual issues. Note for Consultation follow-up: Dr Dixon was concerned about possible carotid artery disease. 01-01-2025 Unclassified (2 sources) [ADDITIONAL REASON] Transition into care - The patient is transitioning into care from another physician (eye doctor). 01-01-2025 Vital Signs Date Time Vital Sign Value Performing Clinician Facility 01-30-2025 13:16-0400 Body height 170.[address] Kevin Pizarro MD Work Phone: [phone] [address] 01-30-2025 13:16-0400 Body mass index (BMI) [Ratio] 28 kg/m2 Dr. Kevin Pizarro MD Work Phone: 9(772)[phone] [place] [address] 01-30-2025 13:16-0400 Body temperature 98.6 [degF] Dr. Kevin Pizarro MD Work Phone: 7([phone])[phone] [place] [address] 01-30-2025 13:16-0400 Body weight 81.[address] Kevin Pizarro MD Work Phone: 1([phone])[phone] [place] [address] 01-30-2025 13:16-0400 Diastolic blood pressure 92 mm[Hg] Dr. Kevin Pizarro MD Work Phone: 4([phone])[phone] [place] [address] 01-30-2025 13:16-0400 Heart rate 68 /min Dr. Kevin Pizarro MD Work Phone: 8(814)[phone] [place] [address] 01-30-2025 13:16-0400 Respiratory rate 16 /min Dr. Kevin Pizarro MD Work Phone: 2([phone])[phone] [place] [address] 01-30-2025 13:16-0400 SaO2% (BldA) [Mass fraction] 97 % Dr. Kevin Pizarro MD Work Phone: 3([phone])[phone] [place] [address] 01-30-2025 13:16-0400 Systolic blood pressure 145 mm[Hg] Dr. Kevin Pizarro MD Work Phone: 1([phone])[phone] [place] [address] 01-01-2025 09:51-0400 Body height 171.45 cm Dora Adan LPN [facility], [facility].; [facility], [facility] 01-01-2025 09:51-0400 Body mass index (BMI) [Ratio] 27.93 kg/m2 Dora Adan LPN [facility], [facility].; [facility], [facility] 01-01-2025 09:51-0400 Body surface area Derived from formula 1.95 m2 Dora Adan LPN [facility], [facility].; [facility], [facility] 01-01-2025 09:51-0400 Body weight 82.1 kg Dora Loco FIGUEROA [facility], [facility] [employer] [facility], [employer]. 01-01-2025 09:51-0400 Diastolic blood pressure 89 mm[Hg] Dora Adan LPN [facility], [facility] [employer], [employer]. Comment on above: Patient Position: Sitting; Cuff Location : Left Arm; Cuff Size: Standard 01-01-2025 09:51-0400 Heart rate 71 /min Dora Adan LPN [facility], [facility] [employer] Comment on above: Pattern: Regular 01-01-2025 09:51-0400 Systolic blood pressure 128 mm[Hg] Dora Adan LPN [facility], [facility] [employer] Comment on above: Patient Position: Sitting; Cuff Location : Left Arm; Cuff Size: Standard 07-12-2018 13:03-0500 Body height 171.45 cm Margaret Orozco Kye HAND CULTIVATOR [facility], [facility] [employer] [employer] 07-12-2018 13:03-0500 Body mass index (BMI) [Ratio] 27.78 kg/m2 [facility], [facility] [employer] 07-12-2018 13:03-0500 Body surface area Derived from formula 1.94 m2 Ana Stuckey HAND CULTIVATOR [facility], [facility] [employer] 07-12-2018 13:03-0500 Body temperature 101.1 [degF] [facility] [employer] [employer], [employer]. Comment on above: Method: Tympanic 07-12-2018 13:03-0500 Body weight 81.[address] [facility], [employer] [employer] 07-12-2018 13:03-0500 Diastolic blood pressure 91 mm[Hg] AnaPam Cuadraey HAND CULTIVATOR [facility], [facility] [employer], [employer]. Comment on above: Patient Position: Sitting; Cuff Location : Left Arm; Cuff Size: Large 07-12-2018 13:03-0500 Heart rate 92 /min Margaret Fishman HAND CULTIVATOR [facility], [facility] [employer], [employer]. Comment on above: Pattern: Regular 07-12-2018 13:03-0500 Systolic blood pressure 148 mm[Hg] Margaret Fishman [facility], [facility] [employer], [employer]. Comment on above: Patient Position: Sitting; Cuff Location : Left Arm; Cuff Size: Large 03-27-2014 10:040 Body height 171.45 cm Amanda Blair LPN [facility], [facility] [employer], [employer]. 03-27-2014 10:0400 Body mass index (BMI) [Ratio] 27.78 kg/m2 Amanda [facility] [employer] 03-27-2014 10:190400 Body surface area Derived from formula 1.94 m2 Amanda Blair LPN [place] [facility], [facility] [employer], [employer]. 03-27-2014 10:190400 Body temperature 98.3 [degF] Amanda Blair [facility] [employer], [employer]. Comment on above: Method: Tympanic 03-27-2014 10:040 Body weight 81.65 kg Amanda Blair LPN [facility], [facility] [employer] 03-27-2014 10:190400 Diastolic blood pressure 88 mm[Hg] Amanda Blair LPN [place] [facility], [facility] [employer], [employer]. Comment on above: Patient Position: Sitting; Cuff Location : Right Arm; Cuff Size: Standard 03-27-2014 10:190400 Heart rate 64 /min Amanda Blair LPN [place] [facility], [facility] [employer]. Comment on above: Pattern: Regular 03-27-2014 10:19-0400 Systolic blood pressure 147 mm[Hg] Amanda Blair LPN [facility] [employer] [facility] [employer]. Comment on above: Patient Position: Sitting; Cuff Location : Right Arm; Cuff Size: Standard 11-19-2013 13:30-0400 Body temperature 98.7 [degF] Kevin Pizarro MD Work Phone: [employer]. 11-19-2013 13:30-0400 Body weight 80.74 kg Kevin Pizarro MD Work Phone: [employer]. 11-19-2013 13:30-0400 Diastolic blood pressure 79 mm[Hg] Kevin Pizarro MD Work Phone: [employer]. Comment on above: Patient Position: Sitting; Cuff Location : Left Arm; Cuff Size: Standard 11-19-2013 13:30-0400 Heart rate 74 /min Kevin Pizarro MD Work Phone: [employer]. Comment on above: Pattern: Regular 11-19-2013 13:30-0400 Systolic blood pressure 118 mm[Hg] Kevin Pizarro MD Work Phone: [employer]. Comment on above: Patient Position: Sitting; Cuff Location : Left Arm; Cuff Size: Standard 06-26-2010 11:02-0500 Body weight 77.11 kg Kevin Pizarro MD Work Phone: [employer]. 06-26-2010 11:02-0500 Diastolic blood pressure 81 mm[Hg] Kevin Pizarro MD Work Phone: [employer]. Comment on above: Patient Position: Sitting; Cuff Location : Left Arm; Cuff Size: Standard 06-26-2010 11:02-0500 Heart rate 74 /min Kevin Pizarro MD Work Phone: [employer]. Comment on above: Pattern: Regular 06-26-2010 11:02-0500 Systolic blood pressure 131 mm[Hg] Kevin Pizarro MD Work Phone: [employer]. Comment on above: Patient Position: Sitting; Cuff Location : Left Arm; Cuff Size: Standard Encounters Encounter Date Encounter Type Care Provider Facility Start: 01-30-2025 End: 01-30-2025 ambulatory Carmina Stewart Facility:[facility] Start: 01-30-2025 End: 01-30-2025 Patient encounter procedure Carmina Stewartvladimir [facility] -[facility] Work Phone: Start: 01-07-2025 End: 01-07-2025 Orders Kevin Pizarro MD Work Phone: [employer]. Start: 01-01-2025 End: 01-01-2025 Office outpatient visit 15 minutes Kevin Pizarro MD Work Phone: [facility] Start: 07-12-2018 End: 07-12-2018 Office outpatient visit 15 minutes Kevin Pizarro MD Work Phone: [facility] Start: 03-27-2014 End: 03-27-2014 Office outpatient visit 15 minutes Kevin Pizarro MD Work Phone: [facility] Start: 11-19-2013 End: 11-19-2013 Patient encounter procedure Kevin Pizarro MD Work Phone: [facility] Start: 06-26-2010 End: 06-26-2010 Patient encounter procedure Kevin Pizarro MD Work Phone: [facility] Procedures Date Procedure Procedure Detail Performing Clinician Start: 01-01-2025 End: 01-07-2025 Duplex scan extracranial art compl bi study Kevin Pizarro MD Work Phone: Plan of Treatment Date Care Activity Detail Author Start: 01-01-2025 Patient encounter procedure Medical; ACUTE VISIT - CHECK EYE VESSELS PER DR. SHE DIXON ([facility]) [facility] Start: 01-Jan-2025 10:10-04:00 MD Kevin Pizarro Appointment Request [employer]. Start: 01-01-2025 End: 01-01-2025 Duplex scan extracranial art compl bi study Carotid Doppler, Bilateral (91452) Date: 01-Jan-2025 [employer] Comprehensive metabo lic 2000 panel - Serum or Plasma [facility] CTA Head vessels and Neck vessels W contrast IV [facility] Lipid 1996 panel - S chai or Plasma [facility] Payers Date Payer Category Payer Self-pay Self-pay 0 Unknown [id number] Social History Date Type Detail Facility Caffeine Use Caffeine Use [facility]; [facility] Start: 1975 Female [facility] Tobacco smoking consumption unknown [facility]; [facility] Work Phone: Start: 01-30-2025 Tobacco smoking status NHIS Never smoked tobacco (finding) [facility] Start: 07-28-2020 Tobacco Use Tobacco Use [facility] Evaluation note Note Date & Type Note Facility Evaluation note No assessment information availa ble [facility] Work Phone: Reason for referral (narrative) Note Date & Type Note Facility Reason for referral (narrative) No reason for referral information available [place] [employer] [facility] Work Phone: Summary Purpose Family History Relationship Condition Age at Onset Recorded Date/T elvis mother Malignant neoplasm Unknown Diabetes mellitus Unknown sister Hypertension Unknown Advance Directives No Advanced Directives Records Found Chief Complaint and Reason for Visit Chief Complaint Admit Date Carotid Artery Stenosis January 30, 2025 1 2:56pm Additional Source Comments INFORMATION SOURCE (unrecogn ized section and content) DATE CREATED AUTHOR 01/28/2025 [facility] Care Teams (unrecognized sec tion and [...] BE BASED ON THE PRIMARY CLINICAL RECORDS. [facility] [employer] [facility]. provides no warranty or guarantee of the accuracy or completeness of information in this document.
== END | disposition home or self-care (01) ==
LOC: LAB 14:26
PROVIDERS: PCP Family Medicine; Referring Provider Physician Assistant; Visit Provider Physician Assistant
DX: I65.21 Occlusion and stenosis of right carotid artery (principal)
CPT/HCPCS: 36415; 80053; 80061

== ENCOUNTER → 2025-02-20 | Outpatient (CLI) | payer SELFPAY, OTHER ==
--- NOTE | 2025-02-20 08:02 | CT_ITS ---
PROCEDURE: CTA HEAD AND NECK W/ CONTRAST 02/20/2025 REASON FOR EXAM: R ICA STENOSIS TECHNIQUE: CTA HEAD AND NECK W/ CONTRAST Multiplanar Sagittal and Coronal images were obtained. CONTRAST: 100 VOLUME: Isovue 370 mL One or more dose reduction techniques were used (e.g., Automated exposure control, adjustment of the mA and/or kV according to patient size, use of iterative reconstruction technique). RADIATION DOSE SUMMARY: CTDlvol: 44.99+ 20.76+ 17.17 mGy DLP: 1389.17 mGycm COMPARISON: None. FINDINGS: The common carotid and cervical vertebral arteries are patent without evidence of stenosis or injury. Short-segment up to 50% stenosis of the mid carotid artery. The anterior cerebral, anterior communicating, middle cerebral, and posterior cerebral arteries are patent. No abnormal intracranial enhancement. No significant aneurysm. CT/CTA Head AND Neck W/ Contrast IMPRESSION: Up to 50% stenosis of the right mid internal carotid artery. No acute arterial abnormality of the head or neck. Reading Location: [id number]
== END | disposition home or self-care (01) ==
PROVIDERS: PCP Family Medicine; Referring Provider Physician Assistant; Visit Provider Physician Assistant
DX: I65.21 Occlusion and stenosis of right carotid artery (principal); H53.9 Unspecified visual disturbance
CPT/HCPCS: 70496; 70498; Q9967

== ENCOUNTER → 2025-04-25 | Outpatient (CLI) | payer SELFPAY ==
--- NOTE | 2025-04-25 17:18 | CT_ITS ---
PROCEDURE: CTA ABD/PELVIS W/WO CONTRAST 04/25/2025 REASON FOR EXAM: FMD TECHNIQUE: Procedure Code: [id number] Modality: CT Procedure: CTA ABD/PELVIS W/WO CONTRAST Multiplanar Sagittal and Coronal images were obtained. 3D and or MIPS post processing was performed CONTRAST: Isovue 370 VOLUME: 100 mL One or more dose reduction techniques were used (e.g., Automated exposure control, adjustment of the mA and/or kV according to patient size, use of iterative reconstruction technique). RADIATION DOSE SUMMARY: CTDlvol: 44.45 mGy DLP: 879.31 mGycm COMPARISON: None FINDINGS: Aorta: The aorta tapers normally without evidence of aneurysm or dissection. No significant atherosclerotic disease is noted. Iliac Arteries: Normal bifurcation into the common iliac arteries, neither iliac artery shows evidence of aneurysmal dilatation or dissection. Celiac: Normal origin of the celiac axis, normal bifurcation SMA: Unremarkable LAM : Not visualized Right Renal: Proximally 30% stenosis of the right renal artery just distal to its origin Left Renal: No significant stenosis Extravascular Findings: Lung bases are clear. Liver, spleen, pancreas, gallbladder, adrenals and kidneys are unremarkable. No free intraperitoneal fluid, air, or suspicious adenopathy. No evidence of obstruction or inflammatory change within bowel loops. Appendix not visualized scattered sigmoid diverticula without CT evidence of acute diverticulitis. Bony structures are unremarkable. Uterus appears to be surgically absent, there is a 3 cm cystic structure in the right hemipelvis likely ovarian in origin, a pelvic ultrasound is recommended for further evaluation. CT/CTA Abd/Pelvis W/WO Contrast IMPRESSION: Normal tapering of the abdominal aorta without aneurysm or dissection. Normal bifurcation into the common iliac arteries The great vessels of the abdomen are free of significant stenosis, there is a p roximally 30% stenosis at the origin of the right renal artery No suspicious solid organ abnormality No free intraperitoneal fluid, air, or suspicious adenopathy Sigmoid diverticulosis without CT evidence of acute diverticulitis 3 cm right pelvic cyst, likely ovarian in origin, consider dedicated pelvic ult rasound for further evaluation Reading Location: [id number]
== END | disposition home or self-care (01) ==
LOC: CT 17:16
PROVIDERS: PCP Family Medicine; Referring Provider Physician Assistant; Visit Provider Physician Assistant
DX: I77.3 Arterial fibromuscular dysplasia (principal)
CPT/HCPCS: 74174; Q9967